=== PATIENT | male | born 1960 | race African-American/Black ===

== ENCOUNTER → 2019-12-18 | Outpatient (CLI) | payer BC ==
[~2019-12-18] VITALS: Ht 177.8 cm; Wt 108.9 kg
[~2019-12-18] MED LIST: ACTOS15 MG PO; ASPIR 8181 M1 PO; GLYXAMBI 25 MG1 EACH PO; LOVASTAT40 PO; TRIAMTERENE/HCT1 CA1 PO; VITAMIN B-12500 MCG PO; VITAMIN C500 M2 PO
--- NOTE | 2019-12-18 17:37 | P ---
[facility] [place] [address] PROCEDURE REPORT Name: YULISA STRAUSS Room #: REG [facility]#: [id number] Admission: 12/18/19 Attend Phys: Yulisa Uriarte MD Discharge: Date of : 58 Report #: [id number] THIS REPORT FOR: cc: Jarrett Ugarte MD, Michael B. MD Thesing, John A. MD ~ CC: Yulisa Ugarte MD DATE OF SERVICE: 12/18/2019 OUTPATIENT COLONOSCOPY REPORT BRIEF HISTORY: The patient is a 59-year-old male for average risk screening colonoscopy. Last colonoscopy was approximately 10 years ago. PREOPERATIVE DIAGNOSIS: Average risk screening colonoscopy. POSTOPERATIVE DIAGNOSES: Normal average risk screening colonoscopy and small internal hemorrhoids. MEDICATIONS: Deep sedation with propofol per anesthesia. SPECIMEN: None. ESTIMATED BLOOD LOSS: None. PROCEDURE: Colonoscopy to cecum and terminal ileum. FINDINGS: Prior to propofol sedation, procedure of colonoscopy discussed with the patient as well as potential risks and its complications. He indicates he understands and desires to proceed. DESCRIPTION OF PROCEDURE: With the patient in left lateral decubitus position, digital examination was completed, which revealed no abnormalities. Subsequently, the Olympus video colonoscope was introduced into the rectum, advanced under direct vision to the cecum, done with minimal difficulty. Cecum was identified by the ileocecal valve and the appendiceal orifice. I was able to visualize the distal segment of terminal ileum, which was inspected and noted to be unremarkable. At that point, the scope was slowly withdrawn and careful circumferential views were obtained. Upon slow withdrawal of the scope, the prep was excellent. The mucosa was within normal limits, normal vascular pattern, normal light reflex. No neoplastic inflammatory changes were seen. He had normal colonic mucosa throughout the colon. The scope was withdrawn in the [facility] [address] [place] [address] PROCEDURE REPORT Name: YULISA STRAUSS Room #: REG [facility] [place]#: [id number] Admission: 12/18/19 Attend Phys: Yulisa Uriarte MD Discharge: Date of : 58 Report #: [id number] rectum and no abnormalities were seen. However, upon retroflexion, very small hemorrhoids were seen. Scope was withdrawn. The patient tolerated the procedure well. CONDITION OF THE PATIENT UPON DISCHARGE: Following procedure, the patient was drowsy, arousable and conversant and will be discharged home when fully ambulatory. INSTRUCTIONS TO THE PATIENT AND FAMILY AT THE TIME OF DISCHARGE: No neoplastic lesions were seen. I have suggested high fiber diet and return for colonoscopy in 10 years for average risk screening. He does report to me this morning that he has vague left upper quadrant abdominal discomfort. I believe this is unrelated to his colon. Therefore, we will have him return to see me in followup in the office to further discuss and consider evaluation of this left upper quadrant pain. He may need further evaluation such as an upper endoscopy or potentially gastric emptying study in view of his diabetes. Last colonoscopy was about 10 years ago per the patient report. Withdrawal time from the cecum was 9 minutes. <ELECTRONICALLY SIGNED> By: Yulisa Uriarte MD 12/18/19 1737 [id number] [id number] Yulisa Uriarte MD /nt
== END | disposition home or self-care (01) ==
LOC: GI 06:29
DX: Z12.11 Encounter for screening for malignant neoplasm of colon (principal); K64.8 Other hemorrhoids; Z87.19 Personal history of other diseases of the digestive system; I10 Essential (primary) hypertension; E78.5 Hyperlipidemia, unspecified; E11.9 Type 2 diabetes mellitus without complications; Z98.890 Other specified postprocedural states; Z79.899 Other long term (current) drug therapy
CPT/HCPCS: 62110; 62900

== ENCOUNTER → 2020-01-18 | Outpatient (CLI) | payer BC ==
[~2020-01-18] VITALS: Ht 177.8 cm; Wt 108.9 kg
[~2020-01-18] MED LIST changes: +FLOMAX0.4 MG PO
--- NOTE | 2020-01-19 17:09 | P ---
[facility] [place] [address] PROCEDURE REPORT Name: YULISA STRAUSS Room #: REG [facility]#: [id number] Admission: 01/18/20 Attend Phys: Yulisa Uriarte MD Discharge: Date of : 58 Report #: [id number] THIS REPORT FOR: cc: Jarrett Ugarte MD, Michael B. MD Thesing, John A. MD ~ CC: Yulisa Ugarte MD DATE OF SERVICE: 01/18/2020 OUTPATIENT UPPER ENDOSCOPY REPORT BRIEF HISTORY: The patient is a 59-year-old male with complaints of left upper quadrant abdominal pain for the past 3 months. He typically develops the pain with eating. He reports if he does not eat, he is not likely to have pain. There has been no weight loss. He does have diabetes. He has not had problems with nausea or vomiting. He denies typical early satiety. There is questionable solid food dysphagia. PREOPERATIVE DIAGNOSIS: Left upper quadrant pain. POSTOPERATIVE DIAGNOSES: 1. Mild erythematous gastritis. 2. Small, 2 cm less sliding type hiatus hernia. MEDICATIONS: Deep sedation with propofol per anesthesia. SPECIMEN: Biopsies of gastritis. ESTIMATED BLOOD LOSS: 3 mL. PROCEDURE: EGD with biopsy, Bell dilation. FINDINGS: Prior to propofol sedation, procedure of upper endoscopy discussed with the patient as well as potential risks and its complications. He indicates he understands and desires to proceed. DESCRIPTION OF PROCEDURE: With the patient in left lateral decubitus position, the Olympus video endoscope was inserted in the cervical esophagus under direct vision without difficulty. Examination of this organ through its entire length revealed normal esophageal mucosa. The squamocolumnar junction was inspected and was intact and unremarkable. Erosive esophagitis was not seen. No strictures or masses were seen. I did not see an obvious Schatzki ring. Intermittently, a 2 cm less sliding type hiatus hernia was seen. [facility] [place] and [facility] [address] [place] [address] PROCEDURE REPORT Name: YULISA STRAUSS Room #: REG [facility]#: [id number] Admission: 01/18/20 Attend Phys: Yulisa Uriarte MD Discharge: Date of : 58 Report #: [id number] hernia was unremarkable. The scope was advanced into the stomach, was examined on end view as well as retroflexed views. There was patchy erythema mostly in the antrum of stomach, mucosa was intact without ulcers or erosions. Upon retroflexion, no mass lesions were seen. No abnormalities were seen in the proximal stomach. Multiple biopsies were obtained to evaluate for H. pylori. The pylorus was unremarkable. Duodenal bulb was unremarkable. Duodenal sweep was unremarkable. At that point, the scope was slowly withdrawn and careful circumferential views confirmed the above findings. The patient tolerated the procedure well. Following procedure, he was dilated with passage of a 52-Mongolian Bell dilator. There was no resistance. CONDITION OF THE PATIENT UPON DISCHARGE: Following procedure, the patient drowsy and will be discharged home when fully ambulatory. INSTRUCTIONS TO THE PATIENT AND FAMILY AT THE TIME OF DISCHARGE: Etiology of pain is not entirely identified on this examination. Peptic mucosal disease or esophagitis was not identified. He could have nonulcer dyspepsia or nonerosive reflux disease. We will empirically place him on pantoprazole 40 mg daily. He reports pain is associated with eating, so we will obtain an ultrasound Doppler of the abdomen to evaluate for mesenteric vascular disease. He does have diabetes. Since symptoms are associated with meals, we will obtain a gastric emptying study as well. He should return to see me in followup in the office in about 6 weeks. We will also follow up on biopsies obtained today. <ELECTRONICALLY SIGNED> By: Yulisa Uriarte MD 01/19/20 1709 0845 0900 Yulisa Uriarte MD /nt
--- NOTE | 2020-01-22 16:07 | PATH ---
[facility] [address] [address] PATHOLOGY RPT PROCEDURE Name: YULISA STRAUSS Room #: REG [facility] James.#: [id number] Admission: 01/18/20 Date of : 58 Discharge: Report #: [id number] Path Case #: [id number] [facility] Accession Number: [id number] . 01 Material submitted: . stomach - BIOPSY GASTRITIS R/O H. PYLORI . 01 Clinical history: . Abdominal pain, dysphasia, gastritis. . 02 Diagnosis: Gastric mucosa, gastritis, rule out H. pylori, endoscopic biopsy: - Mild chronic gastritis. - Negative for intestinal metaplasia or atrophy. - Negative for Helicobacter pylori (properly-controlled immunohistochemical stain performed). . (IUV:mml; 01/22/2020) QLM 01/22/2020 1337 Local . 02 Electronically signed: . Makayla Lema MD, Pathologist NPI- [id number] . 01 Gross description: . Received in formalin labeled "Isaias Yulisa, BX gastritis rule out H. pylori" is a 0.8 x 0.5 x 0.1 cm aggregate of roberts-brown soft tissue fragments. The specimen is submitted entirely in A1. ([facility] [place]; 01/19/2020) [facility] 01/19/2020 1010 Local . 02 Pathologist provided ICD-10: K29.50 . 02 CPT . 992201, [id number] Specimen Comment: A courtesy copy of this report has been sent to [phone], [phone] Specimen Comment: [id number] Specimen Comment: Report sent to / DR ORTIZ Performed at: [address], [place] [id number] MD Andrew Hernandez MD Phone: [phone] Performed at: [address] [id number] MD Makayla Lema MD Phone: [phone]
== END | disposition home or self-care (01) ==
LOC: GI 07:22
DX: R10.12 Left upper quadrant pain (principal); K29.50 Unspecified chronic gastritis without bleeding; K44.9 Diaphragmatic hernia without obstruction or gangrene; R13.10 Dysphagia, unspecified; E78.5 Hyperlipidemia, unspecified; I10 Essential (primary) hypertension; E11.9 Type 2 diabetes mellitus without complications; Z87.19 Personal history of other diseases of the digestive system; Z98.890 Other specified postprocedural states; Z79.899 Other long term (current) drug therapy
CPT/HCPCS: 62110; 62900